=== PATIENT | female | born 1990 ===

== ENCOUNTER 2022-04-13 04:03 | Day surgery (SDC) | payer OTHER ==
[2022-04-12 13:17] VITALS: BMI 23.9
[2022-04-13] MEDS ORDERED: MIDAZOLAM HCL 2 MG/2 ML SINGLE DOSE VIAL ONE (15:24)
[2022-04-13] MEDS ORDERED: PROPOFOL 40 ML ONE (15:24)
[2022-04-13] MEDS ORDERED: oxyCODONE HCL 5 MG TABLET PO PRN (15:36)
[2022-04-13] MEDS ORDERED: ONDANSETRON 4 MG/2 ML VIAL IVPUSH PRN (15:36)
[2022-04-13] MEDS ORDERED: LACTATED RINGERS SOLUTION 1,000 ML IV SCH (15:45)
[2022-04-13] MEDS ORDERED: IBUPROFEN 400 MG TABLET (FP) PO PRN (16:28)
[2022-04-13] MEDS ORDERED: ACETAMINOPHEN 325 MG TABLET (FP) PO PRN (16:28)
[2022-04-13 18:17] VITALS: RESP 20; TEMP 97.1
[2022-04-13 19:22] VITALS: BP 128/71; PULSE 59
== END 2022-04-13 19:15 | disposition home or self-care (01) ==
LOC: JASU-SURG 04:03
PROVIDERS: ATTEND Obstetrics & Gynecology
PROC: 0UB98ZX Excision of Uterus, Via Natural or Artificial Opening Endoscopic, Diagnostic (ICD-10-PCS; principal; 2022-04-13 14:00)
PROC: 0UDB7ZX Extraction of Endometrium, Via Natural or Artificial Opening, Diagnostic (ICD-10-PCS; 2022-04-13 14:00)
DX: N84.0 Polyp of corpus uteri (principal)
CPT/HCPCS: 81025; 88305-TC; 94760